=== PATIENT | male | born 1965 | race American Indian/Alaskan Native ===

== ENCOUNTER 2022-03-05 00:31 | Emergency (ER) | payer MEDICAID ==
[~2022-03-05 00:31] MED LIST: Sodium Chloride 0.9% 10 ML Syringe FLUSH PRN
[2022-03-05 01:26] LABS: ANION GAP 16.4 mEq/L (7-13); CHLORIDE,CL 100 mmol/L (98-107); SODIUM,NA 137 mmol/L (136-145)
[2022-03-05 01:28] LABS: ESTIMATED GFR 29 mL/min (>=60)
[2022-03-05] MEDS ORDERED: Sodium Chloride 0.9% 1,000 ML IV ONE ×5 (01:37→04:00)
[2022-03-05 03:55] LABS: ANION GAP 12.6 mEq/L (7-13); CHLORIDE,CL 102 mmol/L (98-107); SODIUM,NA 137 mmol/L (136-145)
[2022-03-05 03:56] LABS: ESTIMATED GFR 37 mL/min (>=60)
[2022-03-05 05:37] LABS: ANION GAP 11.5 mEq/L (7-13); CHLORIDE,CL 105 mmol/L (98-107); SODIUM,NA 139 mmol/L (136-145)
[2022-03-05 05:40] LABS: ESTIMATED GFR 46 mL/min (>=60)
[2022-03-05] MEDS ORDERED: Calcium Chloride 10% 1 GM/10 ML Syringe IVPUSH ONE (05:47)
== END 2022-03-05 06:12 | disposition home or self-care (01) ==
LOC: EDBD → DL.ED 00:31
DX: E86.0 Dehydration (principal); N17.9 Acute kidney failure, unspecified; J44.9 Chronic obstructive pulmonary disease, unspecified; I10 Essential (primary) hypertension; Z79.899 Other long term (current) drug therapy; Z20.822 Contact with and (suspected) exposure to COVID-19
CPT/HCPCS: 36415; 80053; 80307; 81001; 83605; 83690; 83735; 83880; 85025; 85379; 86140; 87635; 93005; 96361; 96374; 99284; J3490; J7030; 93010; U0002

== ENCOUNTER 2022-03-05 15:42 | Emergency (ER) | payer MEDICAID ==
[2022-03-05] MEDS ORDERED: Sodium Chloride 0.9% 10 ML Syringe FLUSH PRN (15:45)
[2022-03-05 16:23] LABS: ANION GAP 13.5 mEq/L (7-13)
[2022-03-05 16:47] LABS: CORONAVIRUS COVID-19 NAA NEGATIVE (NEGATIVE)
== END 2022-03-05 17:10 | disposition left against medical advice (07) ==
LOC: DL.ED 15:42
DX: N17.9 Acute kidney failure, unspecified (principal); R09.02 Hypoxemia; I10 Essential (primary) hypertension; J44.9 Chronic obstructive pulmonary disease, unspecified; Z79.899 Other long term (current) drug therapy; Z20.822 Contact with and (suspected) exposure to COVID-19
CPT/HCPCS: 0240U; 36415; 71045; 80053; 81003; 83605; 83880; 84484; 85025; 85379; 86140; 93005; 99284; 93010